=== PATIENT | female | born 1975 ===

== ENCOUNTER 2017-02-20 12:23 | Inpatient (IN) | payer MEDICAID ==
[2017-02-20 12:36] VITALS: BMI 33.5
[2017-02-20] MEDS ORDERED: cefOXitin IV 2 gm in Dextrose 2 GM/50 ML BAG IVPB ONE ×2 (13:24→13:55)
[2017-02-20] MEDS ORDERED: Sodium Citrate/Citric Acid 15 ml Sol PO ONE (13:24)
--- NOTE | 2017-02-20 13:32 | OBHP ---
Datetime: 02/20/2017 13:11 IP Adm Impression: Term, intrauterine IP Chief Complaint Other: elevated bp in office IP Adm Impression Other: previous section IP Admit Plan: Admit to unit; Initiate Section protocol Admit Comment, IP Provider: chief complaint-elevated bp in clinic HPI 41 y/o at 37 wga sent over from the clinic due to elevated BP in office of 160s/90 patient denies nuasea, vomiting, headache, chest pain, shortness of breath, numbness or tingling i n hands and feet.Patient ahd a 24 hour urine collection done for elvtaed bp last week and the protein was 852mg course complicated by AMA; FTS negative; harmony low risk for trisomy 21.18 and 13.Patien t did not have level 2 ultrasound due to insurance.Elevated 1 hour gtt but normal 3 hour gtt. PMH denies PSH csection OBGYN HX CSECTIONX1 Social hx denie stobacco,alcohol or illicit drug use Exam see exam section A/P 41 y/o at 37 wga with mild pre-eclampsia based on labs and recent 24 hour urine protein.h x of previous csection.desires repeat.requesting btl. -admit -see orders Pelvic Type - PN: Adequate Extremities - PN: Normal Abdomen - PN: Normal Back - PN: Normal Lungs - PN: Normal Heart - PN: Normal Neurologic - PN: Normal General - PN: Normal Contraction Comments Provider: occ Gestation - Est Wks by US: 37.0 EGA AdmitDate IP: 37.0 Vital Signs Provider: Reviewed Vital Signs Provider Details: bp 140s/80s IP Chief Complaint: Other FHR Category Provider Fetus A: Category I Genitourinary Exam: Normal DTRs - PN: Normal
[2017-02-20 13:42] LABS: BASO # 0.1 K/uL (0.0-0.2); BASO % 0.8 % (0.0-2.0); EOS # 0.1 K/uL (0.0-0.7); EOS % 0.8 % (0.0-4.0); HEMATOCRIT 32.2 % (34.0-47.0); LYMPH # 2.4 K/uL (1.0-4.3); LYMPH % 23.9 % (20.0-40.0); MEAN CELL VOLUME 84.7 fL (81.0-99.0); MEAN CORPUSCULAR HEMOGLOBIN 28.4 pg (27.0-31.0); MEAN CORPUSCULAR HGB CONC 33.5 g/dL (33.0-37.0); MEAN PLATELET VOLUME 10.7 fL (7.2-11.7); MONO # 0.7 K/uL (0.0-0.8); MONO % 7.2 % (0.0-10.0); RED CELL DISTRIBUTION WIDTH 19.2 % (11.5-14.5)
[2017-02-20 13:50] LABS: RBC URINE 38 /hpf (0-3); URINE BACTERIA FEW (<OCC); URINE BILIRUBIN NEGATIVE (NEGATIVE); URINE BLOOD 1+ (NEGATIVE); URINE COLOR Yellow (YELLOW); URINE GLUCOSE (UA) NORMAL (Normal); URINE KETONE NEGATIVE (NEGATIVE); URINE LEUKOCYTE ESTERASE 3+ Leu/uL (Negative); URINE PROTEIN 1+ mg/dL (NEGATIVE); URINE UROBILINOGEN NORMAL mg/dL (0.2-1.0); WBC URINE 23 /hpf (0-5)
[2017-02-20 13:50] LABS: CHLORIDE 103 mmol/L (98-107); SODIUM 135 mmol/L (132-148)
[2017-02-20 13:52] LABS: ALB/GLOB RATIO 0.9 (1.0-2.1); ALKALINE PHOSPHATASE 124 U/L (38-126); AST/SGOT 23 U/L (14-36); BILIRUBIN,TOTAL < 0.1 mg/dL (0.2-1.3); CARBON DIOXIDE 19 mmol/L (22-30); GFR AFRICAN-AMERICAN > 60; INR 0.9; TOTAL PROTEIN 6.6 g/dL (6.3-8.3)
[2017-02-20 13:53] LABS: ALT/SGPT 22 U/L (9-52); BLOOD UREA NITROGEN 5 mg/dL (7-17); CALCIUM 8.6 mg/dl (8.6-10.4); GLUCOSE,RANDOM 68 mg/dL (65-105); URIC ACID 3.8 mg/dL (2.2-7.5)
[2017-02-20] MEDS ORDERED: Morphine 1 mg/ml preservative-free Inj(Duramorph) ONE (14:20)
[2017-02-20] MEDS ORDERED: ePHEDrine 50 mg/ml Inj ONE (14:20)
[2017-02-20] MEDS: Lactated Ringer's 1,000 ML IV SCH ×2 (14:21→23:20)
[2017-02-20] MEDS ORDERED: Oxycodone/Acetaminophen 5/325 mg Tab PO PRN ×2 (14:36)
--- NOTE | 2017-02-20 16:32 | OBDS ---
DELIVERY PERSONNEL Delivery Doctor: Allen Woodall MD Scrub Nurse: Karma Blount OBT Thermostat Repairer: Irene Carbajal RN Anesthesiologist: Dr. Olmedo MATERNAL INFORMATION Delivery Anesthesia: Spinal Medications in Delivery: pitocin 20 units Estimated Blood Loss (ml): 800 Maternal Complications: Other Other Maternal Complications: repeat with voluntary bilateral tubal ligation for pih RN Comments: uneventful delivery of a viable baby girl. dr. isabel rn in delivery room to [facility] at time of delivery Provider Comments: repeat csection and btl done ebl 800cc LABOR SUMMARY EDC: 03/13/2017 00:00 No. Babies in Womb: 1 Attempted: No Labor Anesthesia: None LABOR INFORMATION Reason for Induction: Not Applicable Other Ripening Agents: n/a Oxytocin: N/A Group B Beta Strep: Negative Antibiotics # of Doses: 1 Antibiotics Time of Last Dose: 1442 Steroids Given: None Reason Steroids Not Administered: Not Applicable MEMBRANES Membranes Rupture Method: Artificial Rupture of Membranes: 02/20/2017 14:20 Length of Rupture (hrs): 1.02 Amniotic Fluid Color: Clear Amniotic Fluid Amount: Moderate Amniotic Fluid Odor: Normal STAGES OF LABOR Stage 3 hrs: 0 Stage 3 min: 1 VAGINAL DELIVERY Initial Vag Sponge Count: 25 Final Vag Sponge Count: 30 Initial Vag Sharps Count: 11 Final Vag Sharps Count: 13 Sponge Count Correct: Yes Sharps Count Correct: Yes CSECTION DELIVERY Primary Indication: Repeat Elective Secondary Indication: Other Other Secondary Indication: blt CSection Urgency: Elective CSection Incidence: Repeat Labor: No Labor Elective: Elective CSection Incision: Lower Uterine Transverse Sterilization Procedure: [place] Uterine Closure: Double-layer closure BABY A INFORMATION Delivery Date/Time: 02/20/2017 15:21 Method of Delivery: Born in Route : No : N/A Forceps: N/A Vacuum Extraction: N/A Shoulder Dystocia : No SHOULDER DYSTOCIA BABY A Delivery Date/Time: 02/20/2017 15:21 PRESENTATION/POSITION BABY A Presentation: Compound Cephalic Presentation: Vertex Vertex Position: Left Occipital Anterior Breech Presentation: N/A PLACENTA INFORMATION BABY A Placenta Delivery Time : 02/20/2017 15:22 Placenta Method of Delivery: Manual Removal Placenta Status: Delivered SCORES BABY A Heart Rate 1 min: >100 bpm Resp Effort 1 min: Good Cry Reflex Irritability 1 min: Cough or Sneeze or Pulls Away Muscle Tone 1 min: Active Motion Color 1 min: Body Grabill, Extremities Blue SCORE 1 MIN: 9 Heart Rate 5 min: >100 bpm Resp Effort 5 min: Good Cry Reflex Irritability 5 min: Cough or Sneeze or Pulls Away Muscle Tone 5 min: Active Motion Color 5 min: Body Grabill, Extremities Blue SCORE 5 MIN: 9 INFANT INFORMATION BABY A Gestational Age at Delivery: 37.0 Gestational Status: Term Outcome : Liveborn Infant Condition : Stable Infant Sex: Female IDENTIFICATION/MEDS BABY A ID Band Number: [id number] ID Band Location: Left Leg; Left Arm Sensor Applied: Yes Sensor Number: [id number] Sensor Location : Cord Clamp Vitamin K Given : Aquamephyton 1 mg IM Erythromycin Given: Given Both Eyes WEIGHT/LENGTH BABY A Infant Birthweight (gms): 3365 Weight (lb): 7 Infant Weight (oz): 7 Infant Length Inches: 19.00 Infant Length cms: 48.3 CORD INFORMATION BABY A No. Cord Vessels: 3 Nuchal Cord : N/A Nuchal Cord Other: 0 True Knot: 0 Cord Blood Taken: Yes Infant Suction: Mouth; Nose ASSESSMENT BABY A Complications: None Physical Findings at Delivery: Within Normal Limits Respirations: Appears Normal Serging Machine Operator Automatic/ALS Called : No Care By: Dr. Jensen and MAHESH Wall Transferred To: Remains with Mother
[2017-02-20] MEDS: Simethicone 80 mg Chewtab PO SCH ×2 (18:30→23:00)
[2017-02-21] MEDS: Lactated Ringer's 1,000 ML IV SCH (06:47)
[2017-02-21 07:51] LABS: BASO % 0.4 % (0.0-2.0); EOS % 0.1 % (0.0-4.0); HEMATOCRIT 29.7 % (34.0-47.0); LYMPH # 1.9 K/uL (1.0-4.3); LYMPH % 12.7 % (20.0-40.0); MEAN CELL VOLUME 85.5 fL (81.0-99.0); MEAN CORPUSCULAR HEMOGLOBIN 28.2 pg (27.0-31.0); MONO % 5.9 % (0.0-10.0); RED CELL DISTRIBUTION WIDTH 19.5 % (11.5-14.5); WHITE BLOOD COUNT 14.8 K/uL (4.8-10.8)
[2017-02-21 07:52] LABS: BASO # 0.1 K/uL (0.0-0.2); MONO # 0.9 K/uL (0.0-0.8)
--- NOTE | 2017-02-21 08:09 | OBPPN ---
Datetime: 02/21/2017 08:04 PP Pain Prov: Within normal limits PP Nausea Prov: Denies PP Flatus Prov: No PP Abdomen/Uterus Prov: Normal PP Lochia Prov: Normal PP Extremities Prov: Normal PP C/S Incision Prov: Normal PP Comments Phys Exam Prov: fudus below umblicus ext mild edema,no calf ten dressing clean and dry PP Impression Prov: Normal progression PP Plan Prov: Continue present management PP Progress Note Prov: pt was seen at bed side, pain under control,no n/v, tolerating liquid deit, n ot voided, mod lochia, fltus_ pod#1 s/p c/s cbc advance deit as gillian pain manage cont post op car encourage ambulation Vital Signs Provider PP: Reviewed
--- NOTE | 2017-02-21 08:26 | OP ---
PROCEDURE DATE: 02/20/2017 PREOPERATIVE DIAGNOSES: 1. Preeclampsia at 37 weeks gestational age. 2. Term intrauterine . 3. section. 4. Multiparity, requesting sterilization. POSTOPERATIVE DIAGNOSES: 1. Preeclampsia at 37 weeks gestational age. 2. Term intrauterine . 3. section. 4. Multiparity, requesting sterilization. PROCEDURE PERFORMED: Repeat lower transverse section and bilateral tubal ligation. SURGEON: Dr. Omar Woodall. WEIGHT YARDAGE CHECKER: Dr. Rehan Lake. Please note that the procedure required a surgical product sales consultant's assistance for the entry surgical product sales consultant to assist with entry into the abdominal cavity and to assist with dissection and to assist with the delivery of the as well as to assist with the closure of the abdominal wall. The surgical product sales consultant was present and scrubbed for the entire duration of the procedure. ANESTHESIA: Spinal. ANESTHESIOLOGIST: Dr. [place]. COMPLICATIONS: None. FINDINGS: A female in vertex presentation with Apgars of 9 at 1 minute and 9 at 5 minutes of life. Normal uterus, tubes and ovaries. SPECIMENS: Placenta, integument of right fallopian tube and left fallopian tube. ESTIMATED BLOOD LOSS: 800 mL. PROCEDURE IN DETAIL: After informed consent was obtained, the patient was taken to the operating room where spinal anesthesia was administered by the anesthesia team. She was thereafter placed in dorsal supine position with a leftward tilt. She was then prepped and draped in the usual sterile manner. The Knapp catheter was confirmed to be draining urine. In the previous scar, Pfannenstiel scar incision was made and this was carried down to the underlying layer of the fascia with the help of the Bovie. The fascia was incised in the midline and the incision was extended laterally with the help of Bovie as well. The superior aspect of the fascia incision was then grasped with Isabel clamp, elevated and the underlying rectus muscle were dissected off. Attention was then turned to the inferior aspect of the fascial incision, which in a similar fashion was grasped with Isabel clamp, elevated, and the underlying rectus muscles dissected off. The rectus muscles were then tented up in the midline and sharply in the midline sharply. The rectus muscle once , the peritoneum was picked up with hemostatic clamps and entered sharply with Metzenbaum scissors. The peritoneal incision was then extended superiorly and inferiorly with good visualization of the bladder. The bladder blade was inserted and vesicouterine peritoneum was identified. A transverse incision was made over the vesicouterine peritoneum and this incision was extended laterally sharply and a bladder flap was thereafter created. The bladder blade was then reinserted and the uterine segment identified. The lower uterine segment at this point was noted to be extremely paper thin. A transverse incision was made over the lower uterine segment and this incision was extended bluntly. The membranes were then ruptured and the infant's head was then delivered atraumatically followed by the body and shoulders. The cord was then clamped and cut. The infant was then handed over to the waiting boiler fitter. Cord blood was collected and the placenta was then removed and the uterus was exteriorized and cleared off all clots and debris. Uterine incision was repaired with a 0 Polysorb in a running locked fashion. Second layer of same suture was used to imbricate the first layer and also to obtain hemostasis. Adequate hemostasis was noted at the uterine incision repair site at this point. The gutters and the cul-de-sac was irrigated and the uterus was then returned to the patient's abdomen. At this point, the right angle of the uterus was noted to be patent and multiple cthyyd-gu-[id number] suture of 2-0 Monocryl and 0-Monocryl was placed, adequate hemostasis was ensured after that. The bladder flap was inspected for hemostasis and adequate hemostasis was noted from the bladder flap as well. The peritoneum was therefore closed with 2-0 Polysorb in running fashion. The muscle area was re-approximated with 2-0 Polysorb in a continuous manner. The fascia was closed with 0-Vicryl in the running fashion. The subcutaneous tissue was re-approximated with 2-0 Polysorb in a continuous manner. Shonna were applied over the skin. The patient was thereafter cleaned and taken to the recovery room in stable condition. The sponge, lap, needle, and instrument count was correct at the end of the procedure as reported to me. Omar Woodall MD JUDITH
[2017-02-21] MEDS: Simethicone 80 mg Chewtab PO SCH ×4 (09:12→21:55)
[2017-02-21] MEDS: Prenatal Multivit/Folic Acid/Iron Tab PO SCH (10:38)
--- NOTE | 2017-02-22 08:51 | OBPPN ---
Datetime: 02/22/2017 08:42 PP Pain Prov: Within normal limits PP Nausea Prov: Denies PP Flatus Prov: Yes PP BM Prov: Yes PP Breasts Prov: Normal PP Heart Prov: Normal PP Lungs Prov: Normal PP Abdomen/Uterus Prov: Normal PP Lochia Prov: Normal PP Vulva/Perineum Prov: Not Done PP CVA Tenderness Prov: Normal PP Extremities Prov: Normal PP C/S Incision Prov: Normal PP Progress Prov: Normal PP Comments Phys Exam Prov: Breasts: large, symmetirc; no cracked nipples Abdomen: Obese, soft, minimal uterine tenderness. Fundus firm, mobile, 2 FB below umbilicus. Mild lochia rubra. Extremities: no calf tenderness; trace pedal edema All other systems reviewed and are negative PP Impression Prov: Normal progression PP Plan Prov: Continue present management PP Progress Note Prov: Patient received in bed, room 452; at her side. (+) pain, 02/23 - reli eved with pain meds. Ambulating and voiding without difficulty. Denies nausea, vomiting. (+) Flatus; (+) BM. Denies dizziness, lightheadedness, shortness of breath, palpitations P.E.: as above. Obese, in NAD. Awake, alert, oriented to time, person and place. - POD#1 H/H 9.8/29.7 Assessment: POD#2, 41 yo. P2, S/P C/S #2 with BTL. AMA. Afebrile, vital signs stable. Anemia - as ymptomatic; hemodynamically stable. Patient encouraged to ambulate. Clinically stable. Plan: 1) Start Fe BID 2) Continue present management 3) Anticipate discharge home 02/23/17 Vital Signs Provider PP: Reviewed; Within Normal Limits
[2017-02-22] MEDS: Simethicone 80 mg Chewtab PO SCH ×4 (10:12→21:48)
[2017-02-22] MEDS: Prenatal Multivit/Folic Acid/Iron Tab PO SCH (10:13)
[2017-02-23 08:27] VITALS: BP 135/86; PULSE 80; RESP 18; TEMP 97.8; O2SAT 100
--- NOTE | 2017-02-23 09:11 | OBPPN ---
Datetime: 02/23/2017 09:07 PP Pain Prov: Within normal limits PP Nausea Prov: Denies PP Flatus Prov: Yes PP Lungs Prov: Normal PP Abdomen/Uterus Prov: Normal PP Lochia Prov: Normal PP Extremities Prov: Normal PP C/S Incision Prov: Normal PP Comments Phys Exam Prov: fudus below umblicus ext no edema,no calf ten incision clean and dry PP Impression Prov: Normal progression PP Plan Prov: Discharge PP Progress Note Prov: pt was seen at bed side, pain under control,mno n/v, tolerating deit, voiding ,min lochia, flatus+ pod#3 s/p c/s dc home no sex percocet prn f/u on monday fpr nelson removal Vital Signs Provider PP: Reviewed; Within Normal Limits
--- NOTE | 2017-02-23 09:11 | OBDCSUM ---
Datetime: 02/23/2017 09:08 Discharged to, Provider: Home Follow up at, Provider: monday Disch Instr Activity: Normal activity Disch Instr Diet: Regular Discharge Diagnosis, Provider: Term Delivered Follow up in weeks, Provider: clinic Disch Activity Restrictions: No exercising; No lifting; No driving; Minimize walking; Minimize stair -climbing; No sexual activity; Nothing in vagina - [place], tampons, douche Discharge Comment, Provider: dc home no sex percocet prn f/u on monday fpr nelson removal Discharge Diagnosis Prov Other: s/p repeat c/s
[2017-02-23] MEDS: Simethicone 80 mg Chewtab PO SCH (10:00)
== END 2017-02-23 13:00 | disposition home or self-care (01) | DRG 370 ==
LOC: C.EROB 12:23 → C.4D 13:23 → C.4M 18:20
PROVIDERS: ADMIT Student in an Organized Health Care Education/Training Program; ATTEND Student in an Organized Health Care Education/Training Program
PROC: 10D00Z1 Extraction of Products of Conception, Low, Open Approach (ICD-10-PCS; principal; 2017-02-20)
PROC: 0UL70ZZ Occlusion of Bilateral Fallopian Tubes, Open Approach (ICD-10-PCS; 2017-02-20)
DX: O34.211 Maternal care for low transverse scar from previous cesarean delivery (principal); O99.02 Anemia complicating childbirth; D64.9 Anemia, unspecified; O14.94 Unspecified pre-eclampsia, complicating childbirth; Z30.2 Encounter for sterilization; Z37.0 Single live birth; Z3A.37 37 weeks gestation of pregnancy

== ENCOUNTER 2017-08-30 15:51 | Emergency (ER) | payer BC, MEDICAID ==
[2017-08-30 15:51] VITALS: BMI 33.5
[2017-08-30 15:54] VITALS: BP 130/88; PULSE 86; RESP 18; TEMP 97.8; O2SAT 97
[2017-08-30] MEDS ORDERED: guaiFENesin 100 mg/5 ml Syrup UD PO STA (16:16)
--- NOTE | 2017-08-30 16:18 | C.PDOC ---
History Of Present Illness Layne Mora is a 41 year old female, with no significant past medical history, who presents to the emergency department complaining of congestion, body aches, and dry cough onset for x3 days. Patient's infant was just admitted upstairs for the flu. Patient states she only took ibuprofen. She denies any shortness of breath, abdominal pain, vomiting or diarrhea. No further medical complaints. PMD: Jose Angel Keith Time Seen by Provider: 08/30/17 16:12 Chief Complaint (Nursing): Cough, Cold, Congestion History Per: Patient History/Exam Limitations: no limitations Onset/Duration Of Symptoms: Days (x3) Current Symptoms Are (Timing): Still Present Sick Contacts (Context): Family Member(s) Associated Symptoms: Cough (dry), Nasal Congestion, Other (body aches). denies : Vomiting, Diarrhea Ear Symptoms: Bilateral: None Past Medical History Reviewed: Historical Data, Nursing Documentation, Vital Signs Vital Signs: Last Vital Signs Temp 97.8 F 08/30/17 15:52 Pulse 86 08/30/17 15:52 Resp 18 08/30/17 15:52 BP 130/88 08/30/17 15:52 Pulse Ox 97 08/30/17 16:18 - Medical History PMH: HTN Denies: Depression, Diabetes Surgical History: No Surg Hx - [facility] Procedures EXTRACTION OF POC, LOW CERVICAL, OPEN APPROACH (02/20/17) OCCLUSION OF BILATERAL FALLOPIAN TUBES, OPEN APPROACH (02/20/17) Family History: States: Unknown Family Hx - Social History Hx Tobacco Use: No Hx Alcohol Use: No Hx Substance Use: No - Immunization History Hx Tetanus Toxoid Vaccination: No Hx Influenza Vaccination: No Hx Pneumococcal Vaccination: No Review Of Systems Constitutional: Positive for: Other (body aches) ENT: Positive for: Nose Congestion Respiratory: Positive for: Cough (dry). Negative for: Shortness of Breath Gastrointestinal: Negative for: Nausea, Vomiting, Abdominal Pain, Diarrhea Physical Exam - Physical Exam Appears: Well, No Acute Distress Skin: Normal Color, Warm, Dry Head: Atraumatic, Normacephalic Eye(s): bilateral: Normal Inspection, PERRL, EOMI Ear(s): Bilateral: Normal Nose: Normal Oral Mucosa: Moist Throat: Normal Neck: Normal ROM, Supple Chest: No Tenderness Cardiovascular: Rhythm Regular, No Murmur Respiratory: Normal Breath Sounds, No Wheezing Gastrointestinal/Abdominal: Normal Exam, Soft, No Tenderness, No Guarding, No Rebound Back: Normal Inspection, No CVA Tenderness, No Vertebral Tenderness, No Paraspinal Tenderness Extremity: Normal ROM, No Tenderness, No Deformity, No Swelling Neurological/Psych: Oriented x3 Gait: Steady ED Course And Treatment O2 Sat by Pulse Oximetry: 97 (RA) Pulse Ox Interpretation: Normal Medical Decision Making Medical Decision Making: Initial Impression: Influenza Initial Plan: --Robitussin 100 mg PO --Tamiflu Cap 75 mg PO --Tylenol 325mg tab 975 mg PO --Reevaluation typical influenza s/s + sick infant w + flu (inpatient) has resolved s/s last week treat empircally Cautioned to NOT go on Pediatrics Floor with florid s/s of Influenza Disposition Doctor Will See Patient In The: Office Counseled Patient/Family Regarding: Studies Performed, Diagnosis - Disposition Referrals: Jose Angel Keith MD [Staff Provider] - Disposition: HOME/ ROUTINE Disposition Time: 16:18 Condition: GOOD Additional Instructions: Take Tamiflu 75 mg twice a day for 5 days- treatment for influenza Continue Dayquil and Nyquil (or non-brand equivelent) for symptoms, usually every 4-6 hours Follow-up with your PMD as needed. Do NOT go up on the Pediatrics Floor w probable Influenza and symtoms - this is a risk to the Pediatric patients. Prescriptions: Oseltamivir [Tamiflu] 75 mg PO BID #9 cap Instructions: Influenza (ED) Forms: [employer] ([place]) - Clinical Impression Clinical Impression: Influenza-like illness - Scribe Statement Mani García Provider Attestation: All medical record entries made by the Scribe were at my direction and personally dictated by me. I have reviewed the chart and agree that the record accurately reflects my personal performance of the history, physical exam, medical decision making, and the department course for this patient. I have also personally directed, reviewed, and agree with the discharge instructions and disposition.
[2017-08-30] MEDS ORDERED: guaiFENesin 100 mg/5 ml Syrup UD ONE (16:28)
== END 2017-08-30 16:37 | disposition home or self-care (01) ==
LOC: C.ER 15:51
DX: J11.1 Influenza due to unidentified influenza virus with other respiratory manifestations (principal); I10 Essential (primary) hypertension